=== PATIENT | male | born 1965 | race Caucasian/White ===

== ENCOUNTER 2020-09-01 10:58 | Emergency (ER) | payer OTHER ==
[~2020-09-01] VITALS: Ht 182.9 cm; Wt 76.2 kg
[~2020-09-01 10:58] MED LIST: OMNIPAQUE 350 MG/ML, 100ML BOTTLE ONE
--- NOTE | 2020-09-01 11:08 | NUR ---
PATIENT WALKED BCK FROM TRIAGE WITH CHIEF C/O DENTAL INFECTION. SAW DENTIST LAST WEEK, PRESCRIBED ABX AND STEROIDS. PAIN AND SWELLING HAVE GOTTEN WORSE, PATIENT REPORTS IT'S HARD TO SWALLOW NOW. SWELLING NOTED TO LEFT SIDE OF FACE. MAURICE VASQUEZ ,CALL LIGHT WITHIN REACH.
--- NOTE | 2020-09-01 11:13 | NUR ---
[facility]PA AT BEDSIDE FOR EVALUATION.
[2020-09-01] MEDS ORDERED: ONDANSETRON 2MG/ML, 2ML IVPush ONE (11:30)
[2020-09-01] MEDS ORDERED: MORPHINE SULFATE 4 MG/ML, 1ML IVPush PRN ×2 (11:30→13:30)
[2020-09-01] MEDS ORDERED: SODIUM CHLORIDE 0.9% 1,000 ML IV ONE (11:30)
[2020-09-01] MEDS ORDERED: ONDANSETRON 2MG/ML, 2ML ONE (11:33)
[2020-09-01] MEDS ORDERED: KETOROLAC 30 MG/1 ML ONE (11:33)
[2020-09-01 11:35] LABS: BASOPHILS % (AUTO) 0 % (0-1); EOSINOPHILS % (AUTO) 0 % (1-7); LYMPHOCYTES % (AUTO) 4 % (22-44); MEAN CORPUSCULAR HEMOGLOBIN 34.3 pg (27.5-34.5); MEAN CORPUSCULAR HGB CONC 34.8 g/dL (33.2-36.2); MEAN PLATELET VOLUME 8.5 fL (7.4-10.4); MONOCYTES % (AUTO) 7 % (2-9); NEUTROPHILS % (AUTO) 89 % (42-75); PLATELET COUNT 224 x10^3/uL (130-400); RED BLOOD COUNT 4.68 x10^6/uL (4.38-5.82); RED CELL DISTRIBUTION WIDTH 12.9 % (9.4-14.8)
[2020-09-01 11:36] LABS: MD NO
--- NOTE | 2020-09-01 11:41 | NUR ---
PATIENT MEDICATED PER eMAR, NADN, VSS, CALL LIGHT WITHIN REACH. WAITING FOR CT SCAN.
[2020-09-01 11:43] LABS: ALBUMIN 3.4 g/dL (3.4-5.0); ANION GAP 5 mmol/L (5-15); CALCIUM 8.7 mg/dL (8.5-10.1); CHLORIDE 106 mmol/L (98-107); CREATININE 0.85 mg/dL (0.7-1.3)
[2020-09-01] MEDS ORDERED: KETOROLAC 30 MG/1 ML IVPush ONE (12:00)
[2020-09-01] MEDS ORDERED: methylPREDNISolone SOD SUCC 125 MG/2 ML IVPush ONE (13:30)
[2020-09-01] MEDS ORDERED: CLINDAMYCIN PMX 300MG/50ML 50 ML IV ONE (13:30)
--- NOTE | 2020-09-01 13:30 | NUR ---
task RN: pt is dozing intermittently, hypoxic on RA. pt placed on O2 at 2L via NC. pt eminded to wear mask while in dept. pt verbalized understanding. report to Narciso CASTRO
[2020-09-01] MEDS ORDERED: methylPREDNISolone SOD SUCC 125 MG/2 ML ONE (13:33)
--- NOTE | 2020-09-01 13:39 | NUR ---
PATIENT TO CT SCAN.
--- NOTE | 2020-09-01 14:23 | NUR ---
PATIENT BACK FROM CT SCAN, CONNECTED TO MONITORS AND RECONNECTED TO FLUIDS AND ABX. NADN, VSS, CALL LIGHT WITHIN REACH. WAITING FOR CT RESULTS.
[2020-09-01] MEDS ORDERED: LIDOCAINE-MPF 1%, 5ML ONE (15:00)
--- NOTE | 2020-09-01 15:11 | NUR ---
[facility]PA AT BEDSIDE FOR I&D.
[2020-09-01 15:26] VITALS: BP 138/81
--- NOTE | 2020-09-01 15:30 | NUR ---
Patient given discharge instructions and presacriptions and they have confirmed that they understand the instructions. Patient stable and ambulatory with steady gait from ED.
== END 2020-09-01 15:31 | disposition home or self-care (01) ==
LOC: ED 11:33
DX: K04.7 Periapical abscess without sinus (principal); L03.211 Cellulitis of face
CPT/HCPCS: 36415; 64400; 70486; 70487; 80048; 82040; 85025; 96361; 96365; 96375; 99285; J1885; J2405; J2930; J7030; Q9967